=== PATIENT | female | born 1970 | race Caucasian/White ===

== ENCOUNTER → 2020-07-07 | Outpatient (CLI) | payer OTHER ==
[2015-06-28 16:04] VITALS: BP 151/84
--- NOTE | 2020-07-08 11:23 | SLEEP ---
DATE OF STUDY: 07/07/2020 HOME SLEEP STUDY ATTENDING PHYSICIAN: Dr. Tanner Meneses. The patient is a 49-year-old who weighs 270 pounds with a BMI of 44.9. The patient's [place] score was 10. The patient underwent home sleep study, performed at [facility]. Total recording time was 378 minutes. During the night study, the patient had 17 obstructive apneas, 17 mixed apneas, no central apneas. There were 23 hypopneas. The patient's AHI was 10.7 per hour. Nocturnal oximetry study revealed an average oxygen saturation of 89% with the lowest of 78%. 239 minutes were spent with oxygen saturation of less than 90%. Mean heart rate was 81 beats per minute. IMPRESSION: 1. Mild obstructive sleep apnea at an AHI of 10.7 per hour. 2. Nocturnal hypoxia, secondary to combination of obstructive sleep apnea and hypoventilation. RECOMMENDATIONS: 1. If the patient is clinically symptomatic or has comorbid conditions, then consider treatment of sleep apnea with CPAP versus oral appliance. 2. Once the patient is optimally treated, then follow up in 4-6 weeks to assess compliance and to document clinical improvement. 3. Weight loss is strongly advised. 4. Avoid [employer] depressants. 5. Cautioned regarding driving until symptoms of sleep apnea resolve with the above recommendation. 6. If the patient does not undergo CPAP titration, then the patient would be eligible for nocturnal oxygen. LEVON ANDRADE MD DR: ELVA/jad JOB#: [id number] / [id number] Nii Rose MD
== END ==
LOC: RT 10:00
PROVIDERS: ATTEND Family Medicine
DX: G47.33 Obstructive sleep apnea (adult) (pediatric) (principal); R06.89 Other abnormalities of breathing
CPT/HCPCS: G0399

== ENCOUNTER → 2020-08-18 | Outpatient (CLI) | payer OTHER ==
[2015-06-28 16:04] VITALS: BP 151/84
[~2020-08-18] MED LIST: ZOLPIDEM 5 MG TABLET. PO ONE
--- NOTE | 2020-08-19 12:28 | SLEEP ---
DATE OF STUDY: 08/18/2020 SLEEP STUDY ATTENDING PHYSICIAN: Himanshu Meneses MD The patient is 49 years old who weighs 276 pounds with a BMI of 46. The patient's [place] score was 14. The patient had a home sleep study on 07/07/2020 and was found to have mild LUIS MIGUEL at an AHI of 10.7 per hour. Since the patient was clinically symptomatic, the patient was referred back to sleep lab for CPAP titration study. During the night of study, the patient spent 381 minutes in bed and slept for 334 minutes with a sleep efficiency of 88%. Sleep latency was 40 minutes with a REM latency of 202 minutes. Sleep architecture showed normal stage 1 and stage 2 sleep, increased slow wave sleep and normal REM sleep. EKG monitoring revealed an average heart rate of 81 beats per minute, no sustained arrhythmias observed. PLMS were seen at index of 26 per hour and 4 per hour caused EEG arousals. The patient was started on CPAP at 5 cm water and titrated up to 11 cm water. At the final pressure, the patient slept for 149 minutes. The patient had supine as well as REM sleep. The patient's AHI was reduced to 2 per hour and oxygen saturation remained above 88% with one spot desaturation of 85%. IMPRESSION: 1. Obstructive sleep apnea diagnosed by home sleep study previously. 2. Moderate periodic limb movements. RECOMMENDATIONS: 1. CPAP at 11 cm water completely eliminated the patient's sleep apnea and should be used on a nightly basis. 2. Follow up in 4-6 weeks to assess compliance with CPAP and to document clinical improvement. 3. Weight loss is strongly advised. 4. Avoid [facility] depressants. 5. Caution regarding driving until symptoms of sleep apnea resolve with the use of CPAP. 6. The patient should also be further evaluated for symptoms of restless legs during the day. The patient has moderate PLMS. LEVON ANDRADE MD DR: ELVA/jad JOB#: [id number] / [id number] Nii Rose MD
== END ==
LOC: SLPLAB 18:44
PROVIDERS: ATTEND Family Medicine
DX: G47.33 Obstructive sleep apnea (adult) (pediatric) (principal); G47.61 Periodic limb movement disorder
CPT/HCPCS: 95811

== ENCOUNTER → 2020-09-17 | Outpatient (CLI) | payer OTHER ==
[2015-06-28 16:04] VITALS: BP 151/84
--- NOTE | 2020-09-17 17:14 | KCIC ---
EXAM: Chest, 2 views. HISTORY: Belching. COMPARISON: None. FINDINGS: 2 views of the chest are obtained. There is no infiltrate, pleural effusion or pneumothorax . The heart is normal in size. IMPRESSION: No acute pulmonary finding. Electronically signed by: Orin Blanton MD (09/17/2020 5:12 PM) [email or web address]
--- NOTE | 2020-09-17 17:15 | KCIC ---
EXAM: Abdomen, 2 views. HISTORY: Belching. COMPARISON: None. FINDINGS: Frontal upright and supine views of abdomen are obtained. There are nonspecific air-filled loops of small and large bowel throughout the abdomen. There is no evidence of obstruction. There is no free air. IMPRESSION: Nonspecific bowel gas pattern, without evidence of obstruction. Electronically signed by: Orin Blanton MD (09/17/2020 5:13 PM) [email or web address]
== END ==
LOC: KCIC 13:42
PROVIDERS: ATTEND Family Medicine
DX: R14.2 Eructation (principal)
CPT/HCPCS: 71046; 74021